=== PATIENT | male | born 1995 | race Hispanic/Latino ===

== ENCOUNTER 2018-03-06 15:28 | Emergency (ER) | payer SELFPAY ==
--- NOTE | 2018-03-06 17:17 | EDPHYS ---
Physician Documentation [facility] Name: Moisés Salas Jr Age: 22 yrs Sex: Male : 1995 Arrival Date: 03/06/2018 Time: 15:31 Bed 10 Private MD: ED Physician Titus Love HPI: 03/06 15:49 This 22 yrs old Male presents to ER via Ambulatory with complaints of Cough, kb Sore Throat. 15:49 The patient or guardian reports cough, that is intermittent, described as mild, with no kb sputum. Onset: The symptoms/episode began/occurred 1 week(s) ago. Severity of symptoms: At their worst the symptoms were mild, in the emergency department the symptoms are unchanged. Modifying factors: The symptoms are alleviated by nothing, the symptoms are aggravated by nothing. Associated signs and symptoms: Pertinent positives: sore throat, Pertinent negatives: chest pain, diarrhea, ear ache, fever, nausea, rhinorrhea, vomiting. The patient has not experienced similar symptoms in the past. The patient has not recently seen a physician. Historical: - Allergies: 15:44 No Known Allergies; mg2 - Home Meds: 15:44 None [Active]; mg2 - PMHx: 15:44 None; mg2 - PSHx: 15:44 hip surgery; mg2 - Immunization history:: Flu vaccine status is unknown. - Social history:: Smoking status: Patient uses tobacco products, smokes one-half pack cigarettes per day, Patient uses alcohol, weekly. Patient/guardian denies using street drugs, IV drugs. - Ebola Screening: : No symptoms or risks identified at this time. ROS: 15:49 Constitutional: Negative for fever, chills, and weight loss, Cardiovascular: Negative kb for chest pain, palpitations, and edema, Abdomen/GI: Negative for abdominal pain, nausea, vomiting, diarrhea, and constipation, Back: Negative for injury and pain, : Negative for injury, bleeding, discharge, and swelling, MS/Extremity: Negative for injury and deformity, Skin: Negative for injury, rash, and discoloration, Neuro: Negative for headache, weakness, numbness, tingling, and seizure. 15:49 ENT: Positive for sore throat. 15:49 Respiratory: Positive for cough, Negative for dyspnea on exertion, hemoptysis, orthopnea, pleurisy, shortness of breath, sputum production, wheezing. Exam: 15:50 Constitutional: This is a well developed, well nourished patient who is awake, alert, kb and in no acute distress. Head/Face: Normocephalic, atraumatic. ENT: Nares patent. No nasal discharge, no septal abnormalities noted. Tympanic membranes are normal and external auditory canals are clear. Oropharynx with no redness, swelling, or masses, exudates, or evidence of obstruction, uvula midline. Mucous membranes moist. Neck: Trachea midline, no thyromegaly or masses palpated, and no cervical lymphadenopathy. Supple, full range of motion without nuchal rigidity, or vertebral point tenderness. No Meningismus. Chest/axilla: Normal chest wall appearance and motion. Nontender with no deformity. No lesions are appreciated. Cardiovascular: Regular rate and rhythm with a normal S1 and S2. No gallops, murmurs, or rubs. Normal PMI, no JVD. No pulse deficits. Respiratory: Lungs have equal breath sounds bilaterally, clear to auscultation and percussion. No rales, rhonchi or wheezes noted. No increased work of breathing, no retractions or nasal flaring. Abdomen/GI: Soft, non-tender, with normal bowel sounds. No distension or tympany. No guarding or rebound. No evidence of tenderness throughout. Skin: Warm, dry with normal turgor. Normal color with no rashes, no lesions, and no evidence of cellulitis. MS/ Extremity: Pulses equal, no cyanosis. Neurovascular intact. Full, normal range of motion. Neuro: Awake and alert, GCS 15, oriented to person, place, time, and situation. Cranial nerves II-XII grossly intact. Motor strength 5/5 in all extremities. Sensory grossly intact. Cerebellar exam normal. Normal gait. Vital Signs: 15:43 BP 145 / 89; Pulse 73; Resp 18; Temp 99; Pulse Ox 100% on R/A; Weight 122.47 kg; Height mg2 6 ft. 0 in. (182.88 cm); Pain 6/10; 17:19 BP 142 / 70; Pulse 79; Resp 18; Temp 98.7(O); Pulse Ox 100% ; Pain 0/10; mg2 15:43 Body Mass Index 36.62 (122.47 kg, 182.88 cm) mg2 MDM: 15:35 Patient medically screened. kb 15:50 Data reviewed: vital signs, nurses notes. Data interpreted: Pulse oximetry: on room air kb is 100 %. Interpretation: normal. 17:16 Counseling: I had a detailed discussion with the patient and/or guardian regarding: the kb historical points, exam findings, and any diagnostic results supporting the discharge/admit diagnosis, lab results, the need for outpatient follow up, a family practitioner, to return to the emergency department if symptoms worsen or persist or if there are any questions or concerns that arise at home. 03/06 15:40 Order name: Flu; Complete Time: 17:03 kb 03/06 15:40 Order name: Strep; Complete Time: 16:50 kb 03/06 16:51 Order name: Throat Culture EDMS Administered Medications: No medications were administered Disposition: 03/07 06:34 Co-signature as Attending Physician, Titus Love MD I agree with the assessment and shai plan of care. Disposition: 03/06/18 17:16 Discharged to Home. Impression: Acute pharyngitis. - Condition is Stable. - Discharge Instructions: Pharyngitis, [id number], Viral Respiratory Infection, [id number]. - Work release form, Family Work Release, Medication Reconciliation Form, Thank You Letter, Antibiotic Education, Prescription Opioid Use form. - Follow up: Emergency Department; When: As needed; Reason: Worsening of condition. Follow up: Private Physician; When: 2 - 3 days; Reason: Recheck today's complaints, Continuance of care, Re-evaluation by your physician. Signatures: Dispatcher [employer] EDTN Rosio Cardoza, INTERNET TECHNOLOGY MANAGER-C INTERNET TECHNOLOGY MANAGER-Titus Nielson MD MD cha Gardose, Michele, RN RN mg2 Corrections: (The following items were deleted from the chart) 03/06 17:31 17:16 03/06/2018 17:16 Discharged to Home. Impression: Acute pharyngitis. Condition is mg2 Stable. Forms are Medication Reconciliation Form, Thank You Letter, Antibiotic Education, Prescription Opioid Use. Follow up: Emergency Department; When: As needed; Reason: Worsening of condition. Follow up: Private Physician; When: 2 - 3 days; Reason: Recheck today's complaints, Continuance of care, Re-evaluation by your physician. kb
--- NOTE | 2018-03-06 17:17 | ER ---
Nurse's Notes [facility] Name: Moisés Salas Jr Age: 22 yrs Sex: Male : 1995 Arrival Date: 03/06/2018 Time: 15:31 Bed 10 Private MD: Diagnosis: Acute pharyngitis Presentation: 03/06 15:42 Presenting complaint: Patient states: he has cough and sore throat for a week and chest mg2 pain because of coughing. Transition of care: patient was not received from another setting of care. Onset of symptoms was February 2018. Risk Assessment: Do you want to hurt yourself or someone else? Patient reports no desire to harm self or others. Initial Sepsis Screen: Does the patient meet any 2 criteria? No. Patient's initial sepsis screen is negative. Does the patient have a suspected source of infection? No. Patient's initial sepsis screen is negative. Care prior to arrival: None. 15:42 Method Of Arrival: Ambulatory mg2 15:42 Acuity: MARIA ISABEL 4 mg2 Historical: - Allergies: 15:44 No Known Allergies; mg2 - Home Meds: 15:44 None [Active]; mg2 - PMHx: 15:44 None; mg2 - PSHx: 15:44 hip surgery; mg2 - Immunization history:: Flu vaccine status is unknown. - Social history:: Smoking status: Patient uses tobacco products, smokes one-half pack cigarettes per day, Patient uses alcohol, weekly. Patient/guardian denies using street drugs, IV drugs. - Ebola Screening: : No symptoms or risks identified at this time. Screenin:56 Abuse screen: Denies threats or abuse. Denies injuries from another. Nutritional mg2 screening: No deficits noted. Tuberculosis screening: No symptoms or risk factors identified. Fall Risk None identified. Assessment: 15:55 General: Appears in no apparent distress. comfortable, Behavior is calm, cooperative. mg2 Pain: Complains of pain in throat Pain does not radiate. Neuro: Level of Consciousness is awake, alert, obeys commands, Oriented to person, place, time, situation. Cardiovascular: Capillary refill < 3 seconds Patient's skin is warm and dry. Respiratory: Airway is patent Respiratory effort is even, unlabored, Breath sounds are clear. GI: No signs and/or symptoms were reported involving the gastrointestinal system. : No signs and/or symptoms were reported regarding the genitourinary system. EENT: Throat is reddened. Derm: Skin is intact, is healthy with good turgor, Skin is pink, warm \T\ dry. normal. Musculoskeletal: No signs and/or symptoms reported regarding the musculoskeletal system. 17:31 Reassessment: Patient appears in no apparent distress at this time. Patient and/or mg2 family updated on plan of care and expected duration. Pain level reassessed. Patient is alert, oriented x 3, equal unlabored respirations, skin warm/dry/pink. Vital Signs: 15:43 BP 145 / 89; Pulse 73; Resp 18; Temp 99; Pulse Ox 100% on R/A; Weight 122.47 kg; Height mg2 6 ft. 0 in. (182.88 cm); Pain 6/10; 17:19 BP 142 / 70; Pulse 79; Resp 18; Temp 98.7(O); Pulse Ox 100% ; Pain 0/10; mg2 15:43 Body Mass Index 36.62 (122.47 kg, 182.88 cm) mg2 ED Course: 15:31 Patient arrived in ED. mr 15:32 Rosio Cardoza FNP-C is [facility]. kb 15:32 Titus Love MD is Attending Physician. kb 15:42 Bo Sepulveda, HENRY is Primary Nurse. mg2 15:43 Triage completed. mg2 15:44 Arm band placed on. mg2 15:56 Patient has correct armband on for positive identification. mg2 15:56 No provider procedures requiring assistance completed. Patient did not have IV access mg2 during this emergency room visit. Administered Medications: No medications were administered Outcome: 17:16 Discharge ordered by . kb 17:31 Discharged to home ambulatory, with family. mg2 17:31 Condition: stable 17:31 Discharge instructions given to patient, family, Instructed on discharge instructions, follow up and referral plans. Demonstrated understanding of instructions, follow-up care. 17:31 Patient left the ED. mg2 Signatures: Rosio Cardoza FNP-C FNP-Cady Ld Roseann Bo Sepulveda, RN RN mg2 Corrections: (The following items were deleted from the chart) 17:31 17:19 Pulse 79bpm; Resp 18bpm; Pulse Ox 100%; Temp 98.7F Oral; Pain 0/10; mg2 mg2
== END 2018-03-06 17:31 | disposition home or self-care (01) ==
LOC: ER 15:28
DX: J02.9 Acute pharyngitis, unspecified (principal); F17.210 Nicotine dependence, cigarettes, uncomplicated
CPT/HCPCS: 87070; 87081; 87804; 99281

== ENCOUNTER 2018-04-12 18:59 | Emergency (ER) | payer SELFPAY ==
--- NOTE | 2018-04-12 20:02 | EDPHYS ---
Physician Documentation [facility] Name: Moisés Salas Jr Age: 23 yrs Sex: Male : 1995 Arrival Date: 04/12/2018 Time: 19:02 Bed 28 Private MD: ED Physician Nash Mckee HPI: 04/12 19:45 This 23 yrs old Male presents to ER via Ambulatory with complaints of Cough, cp Ear Pain. 19:45 The patient or guardian reports cough, that is intermittent, with productive sputum. cp Onset: The symptoms/episode began/occurred 3 day(s) ago. 19:45 Severity of symptoms: in the emergency department the symptoms are unchanged, despite cp home interventions. Associated signs and symptoms: Pertinent positives: earache, sore throat, cough, Pertinent negatives: chest pain, diarrhea, vomiting. Historical: - Allergies: 19:08 No Known Allergies; aa5 - PMHx: 19:08 None; aa5 - PSHx: 19:08 hip surgery; aa5 - Immunization history:: Flu vaccine is up to date. - Social history:: Smoking status: Patient uses tobacco products, denies chronic smoking, but will smoke occasionally. - Ebola Screening: : No symptoms or risks identified at this time. ROS: 20:00 Constitutional: Negative for body aches, chills, fever, poor PO intake. cp 20:00 Eyes: Negative for injury, pain, redness, and discharge. cp 20:00 ENT: Positive for ear pain, sinus congestion, sore throat, Negative for drainage from cp ear(s), difficulty swallowing, difficulty handling secretions. 20:00 Neck: Negative for pain with movement, pain at rest, stiffness. 20:00 Cardiovascular: Negative for chest pain, edema, palpitations. 20:00 Respiratory: Positive for cough, Negative for shortness of breath, wheezing. 20:00 Abdomen/GI: Negative for abdominal pain, nausea, vomiting, and diarrhea. 20:00 Skin: Negative for cellulitis, rash. 20:00 Neuro: Negative for dizziness, headache, weakness. cp 20:00 All other systems are negative. Exam: 20:00 Constitutional: The patient appears in no acute distress, alert, awake, non-toxic, well cp developed, well nourished. 20:00 Head/Face: Normocephalic, atraumatic. cp 20:00 Eyes: Periorbital structures: appear normal, Conjunctiva: normal, no exudate, no injection, Sclera: no appreciated abnormality, Lids and lashes: appear normal, bilaterally. 20:00 ENT: External ear(s): are unremarkable, Ear canal(s): erythema, that is moderate, of the right canal, TM's: bulging, on the right, erythema, that is moderate, on the right, Nose: is normal, Mouth: Lips: moist, Oral mucosa: moist, Posterior pharynx: Airway: no evidence of obstruction, patent, Tonsils: with erythema, no exudate, swelling, is not appreciated, erythema, that is moderate, exudate, is not appreciated. 20:00 Neck: ROM/movement: is normal, is supple, without pain, no range of motions limitations, no meningismus, no nuchal rigidity. 20:00 Chest/axilla: Inspection: normal, Palpation: is normal, no crepitus, no tenderness. 20:00 Cardiovascular: Rate: normal, Rhythm: regular. cp 20:00 Respiratory: the patient does not display signs of respiratory distress, Respirations: normal, no use of accessory muscles, no retractions, no splinting, no tachypnea, labored breathing, is not present, Breath sounds: decreased breath sounds, are not appreciated, stridor, is not appreciated, + upper airway congestion. 20:00 Abdomen/GI: Inspection: abdomen appears normal, Palpation: abdomen is soft and non-tender, in all quadrants. 20:00 Back: pain, is absent, ROM is normal. 20:00 Skin: cellulitis, is not appreciated, no rash present. 20:00 Neuro: Orientation: to person, place \T\ time. Mentation: is normal, Cerebellar function: is grossly normal, Motor: moves all fours, strength is normal, Sensation: is normal. Vital Signs: 19:08 BP 154 / 91; Pulse 93; Resp 18 S; Temp 99.1(O); Pulse Ox 95% on R/A; Weight 122.47 kg aa5 (R); Pain 8/10; MDM: 19:13 Patient medically screened. cp 20:01 Data reviewed: vital signs, nurses notes, lab test result(s). cp 04/12 19:10 Order name: Flu; Complete Time: 19:51 aa5 04/12 19:51 Interpretation: Reviewed. cp 04/12 19:10 Order name: Strep; Complete Time: 19:51 aa5 04/12 19:51 Interpretation: Reviewed. 04/12 19:35 Order name: Throat Culture [facility] Administered Medications: 19:59 Drug: Tussionex Pennkinetic ER 5 ml Route: PO; mg2 20:15 Follow up: Response: No adverse reaction; Marked relief of symptoms mg2 Disposition: 04/12/18 20:01 Discharged to Home. Impression: Otitis media, unspecified, right ear, Acute upper respiratory infection, unspecified. - Condition is Stable. - Discharge Instructions: Otitis Media, Adult, Upper Respiratory Infection, Adult. - Prescriptions for Augmentin 875- 125 mg Oral Tablet - take 1 tablet by ORAL route every 12 hours for 10 days; 20 tablet. Tessalon Perles 100 mg Oral Capsule - take 2 capsule by ORAL route every 8 hours As needed; 30 capsule. Albuterol Sulfate 90 mcg/actuation - inhale 1-2 puff by INHALATION route every 4-6 hours; 1 Inhaler. - Medication Reconciliation Form, Thank You Letter, Antibiotic Education, Prescription Opioid Use, Work release form form. - Follow up: Private Physician; When: 2 - 3 days; Reason: Recheck today's complaints. - Problem is new. - Symptoms have improved. Addendum: 04/15/2018 07:05 Co-signature as Attending Physician, Nash Mckee MD. r n Signatures: Dispatcher [employer] EDAR Nash Mckee MD MD rn Calderon, Audri, RN RN aa5 Titus Delacruz PA PA cp Gardose, Michele, RN RN mg2 Corrections: (The following items were deleted from the chart) 04/12 20:17 20:01 04/12/2018 20:01 Discharged to Home. Impression: Otitis media, unspecified, right mg2 ear; Acute upper respiratory infection, unspecified. Condition is Stable. Forms are Medication Reconciliation Form, Thank You Letter, Antibiotic Education, Prescription Opioid Use. Follow up: Private Physician; When: 2 - 3 days; Reason: Recheck today's complaints. Problem is new. Symptoms have improved. cp
--- NOTE | 2018-04-12 20:02 | ER ---
Nurse's Notes [facility] Name: Moisés Salas Jr Age: 23 yrs Sex: Male : 1995 Arrival Date: 04/12/2018 Time: 19:02 Bed 28 Private MD: Diagnosis: Otitis media, unspecified, right ear;Acute upper respiratory infection, unspecified Presentation: 04/12 19:07 Presenting complaint: Patient states: productive cough that began x 2-3 days ago. Pt aa5 also reports right ear pain and sore throat. Transition of care: patient was not received from another setting of care. Onset of symptoms was March 2018. Risk Assessment: Do you want to hurt yourself or someone else? Patient reports no desire to harm self or others. Initial Sepsis Screen: Does the patient meet any 2 criteria? No. Patient's initial sepsis screen is negative. Does the patient have a suspected source of infection? No. Patient's initial sepsis screen is negative. Care prior to arrival: None. 19:07 Method Of Arrival: Ambulatory aa5 19:07 Acuity: MARIA ISABEL 4 aa5 Historical: - Allergies: 19:08 No Known Allergies; aa5 - PMHx: 19:08 None; aa5 - PSHx: 19:08 hip surgery; aa5 - Immunization history:: Flu vaccine is up to date. - Social history:: Smoking status: Patient uses tobacco products, denies chronic smoking, but will smoke occasionally. - Ebola Screening: : No symptoms or risks identified at this time. Screenin:18 Abuse screen: Denies threats or abuse. Denies injuries from another. Nutritional mg2 screening: No deficits noted. Tuberculosis screening: No symptoms or risk factors identified. Fall Risk None identified. Assessment: 19:20 General: Appears in no apparent distress. comfortable, Behavior is calm, cooperative. mg2 Pain: Complains of pain in throat Pain does not radiate. Quality of pain is described as aching, Pain began gradually, 2-3 days ago. Is intermittent. Neuro: Level of Consciousness is awake, alert, obeys commands, Oriented to person, place, time. Cardiovascular: Capillary refill < 3 seconds Patient's skin is warm and dry. Respiratory: Reports cough that is dry, Airway is patent Respiratory effort is even, unlabored, Respiratory pattern is regular, symmetrical. GI: No signs and/or symptoms were reported involving the gastrointestinal system. : No signs and/or symptoms were reported regarding the genitourinary system. EENT: Throat is reddened. Derm: Skin is intact, is healthy with good turgor, Skin is pink, warm \T\ dry. normal. Musculoskeletal: Circulation, motion, and sensation intact. Capillary refill < 3 seconds. Vital Signs: 19:08 BP 154 / 91; Pulse 93; Resp 18 S; Temp 99.1(O); Pulse Ox 95% on R/A; Weight 122.47 kg aa5 (R); Pain 8/10; ED Course: 19:02 Patient arrived in ED. rg4 19:08 Triage completed. aa5 19:08 Arm band placed on. aa5 19:13 Titus Delacruz PA is PHCP. cp 19:13 Nash Mckee MD is Attending Physician. cp 19:14 Bo Sepulveda, RN is Primary Nurse. mg2 19:18 No provider procedures requiring assistance completed. Patient did not have IV access mg2 during this emergency room visit. 19:21 Patient has correct armband on for positive identification. Pulse ox on. NIBP on. Door mg2 closed. Administered Medications: 19:59 Drug: Tussionex Pennkinetic ER 5 ml Route: PO; mg2 20:15 Follow up: Response: No adverse reaction; Marked relief of symptoms mg2 Outcome: 20:01 Discharge ordered by . cp 20:17 Discharged to home ambulatory, with family. mg2 20:17 Condition: stable 20:17 Discharge instructions given to patient, Instructed on discharge instructions, follow up and referral plans. medication usage, Demonstrated understanding of instructions, follow-up care, medications, Prescriptions given X 3. 20:17 Patient left the ED. mg2 Signatures: Susan Baker, RN RN aa5 Titus Delacruz PA PA cp Garcia, Rubi rg4 Bo Sepulveda RN RN mg2
[2018-04-12] MEDS ORDERED: HYDROCODONE/CHLORPHEN 5 ML/OSYR ONE (20:07)
== END 2018-04-12 20:17 | disposition home or self-care (01) ==
LOC: ER 18:59
DX: H66.91 Otitis media, unspecified, right ear (principal); J06.9 Acute upper respiratory infection, unspecified; Z72.0 Tobacco use
CPT/HCPCS: 87070; 87081; 87804; 99283

== ENCOUNTER 2020-03-30 02:28 | Emergency (ER) | payer SELFPAY ==
[2020-03-30] MEDS ORDERED: LIDOCAINE 1% MPF 30 ML VIAL ONE (04:11)
--- NOTE | 2020-03-30 05:32 | ER ---
Nurse's Notes [facility] Name: Moisés Salas Jr Age: 25 yrs Sex: Male : 1995 Arrival Date: 03/30/2020 Time: 02:29 Bed 3 Private MD: Diagnosis: Right Lower Leg Abscess with Cellulitis Presentation: 03/30 02:48 Chief complaint: Patient states: Reports something "I felt something bite me but I lp1 didn't think anything of it"; Occurred 2 days ago, increasing pain, swelling and redness to site, right lateral ankle, abscess noted in triage. Coronavirus screen: Client denies travel out of the [place] in the last 14 days. At this time, the client does not indicate any symptoms associated with coronavirus-19. Ebola Screen: No symptoms or risks identified at this time. Risk Assessment: Do you want to hurt yourself or someone else? Patient reports no desire to harm self or others. Onset of symptoms was March 30, 2020. 02:48 Method Of Arrival: Ambulatory lp1 02:48 Acuity: MARIA ISABEL 4 lp1 02:50 Initial Sepsis Screen: Does the patient meet any 2 criteria? No. Patient's initial lp1 sepsis screen is negative. Does the patient have a suspected source of infection? No. Patient's initial sepsis screen is negative. Historical: - Allergies: 02:49 No Known Allergies; lp1 - Home Meds: 02:49 None [Active]; lp1 - PMHx: 02:49 None; lp1 - PSHx: 02:49 None; lp1 - Immunization history:: Adult Immunizations up to date. - Social history:: Smoking status: Patient reports the use of cigarette tobacco products, smokes one-half pack cigarettes per day. Screenin:52 Abuse screen: Denies threats or abuse. Denies injuries from another. Nutritional lp1 screening: No deficits noted. Tuberculosis screening: No symptoms or risk factors identified. Fall Risk None identified. Assessment: 03:46 General: Appears in no apparent distress. Behavior is appropriate for age. Pain: ea Complains of pain in lateral aspect of right calf. Neuro: Level of Consciousness is awake, alert, obeys commands, Oriented to person, place, time. Respiratory: Airway is patent Respiratory effort is even, unlabored, Respiratory pattern is regular, symmetrical. Derm: redness and swelling to lateral aspect of right calf. Musculoskeletal: Circulation, motion, and sensation intact. 05:35 Reassessment: Patient and/or family updated on plan of care and expected duration. Pain ea level reassessed. Patient is alert, oriented x 3, equal unlabored respirations, skin warm/dry/pink. Discharge instruction given to patient, verbalized the understanding of instruction. Pt left ED ambulatory tolerating well. Vital Signs: 02:50 BP 148 / 92; Pulse 87; Resp 16; Temp 97.4; Pulse Ox 98% on R/A; Weight 117.93 kg (R); lp1 Height 5 ft. 10 in. (177.80 cm); Pain 6/10; 02:50 Body Mass Index 37.31 (117.93 kg, 177.80 cm) lp1 ED Course: 02:29 Patient arrived in ED. am2 02:49 Triage completed. lp1 02:50 Arm band placed on. lp1 02:52 Patient has correct armband on for positive identification. 1 03:44 Bebo Pitts MD is Attending Physician. [facility] 03:46 Cristina Meneses RN is Primary Nurse. ea 05:29 Assist provider with I \\T\\ D: of an abscess on right Set up I\\T\\D tray. Performed by linda Pitts MD Wound packed. Dressing with Patient tolerated well. Patient did not have IV access during this emergency room visit. Administered Medications: 05:12 Drug: Lidocaine (1 %) 1 amp Volume: 20 ml; Route: Infiltration; ea 05:33 Drug: KeFLEX 500 mg Route: PO; ea 05:35 Follow up: Response: No adverse reaction ea 05:33 Drug: Bactrim (160 mg-800 mg (DS) 1 tablet Route: PO; ea 05:33 Follow up: Response: No adverse reaction ea Outcome: 05:31 Discharge ordered by . [facility] 05:35 Discharged to home ambulatory. ea 05:35 Condition: stable 05:35 Discharge instructions given to patient, Instructed on discharge instructions, follow up and referral plans. medication usage, Demonstrated understanding of instructions, follow-up care, medications, Prescriptions given X 3. 05:37 Patient left the ED. ea Signatures: Eve Villarreal RN RN 1 Rosa Cordova am2 Cristina Meneses RN RN Bebo Giles, MD [id number]
--- NOTE | 2020-03-30 05:32 | EDPHYS ---
Physician Documentation [facility] Name: Moisés Salas Jr Age: 25 yrs Sex: Male : 1995 Arrival Date: 03/30/2020 Time: 02:29 Bed 3 Private MD: ED Physician Bebo Pitts HPI: 03/30 05:22 This 25 yrs old Male presents to ER via Ambulatory with complaints of Insect mh7 Bite, Leg Swelling - right. 05:22 the patient presents with a swollen area of the right leg. Description: The affected mh7 area is small, localized, erythematous, swollen, tense. Onset: The symptoms/episode began/occurred 2 day(s) ago. Possible cause(s): insect sting. Associated signs and symptoms: Pertinent positives: erythema, swelling, Pertinent negatives: discharge, drainage, foreign body sensation, fever, headache, nausea, shortness of breath, vomiting. Modifying factors: the symptoms are alleviated by nothing, the symptoms are aggravated by pressure, touching. Severity of symptoms: At their worst the symptoms were moderate, yesterday, in the emergency department the symptoms are unchanged. Historical: - Allergies: 02:49 No Known Allergies; lp1 - Home Meds: 02:49 None [Active]; lp1 - PMHx: 02:49 None; lp1 - PSHx: 02:49 None; lp1 - Immunization history:: Adult Immunizations up to date. - Social history:: Smoking status: Patient reports the use of cigarette tobacco products, smokes one-half pack cigarettes per day. ROS: 05:22 Constitutional: Negative for fever, chills, and weight loss, Eyes: Negative for injury, mh7 pain, redness, and discharge, ENT: Negative for injury, pain, and discharge, Neck: Negative for injury, pain, and swelling, Cardiovascular: Negative for chest pain, palpitations, and edema, Respiratory: Negative for shortness of breath, cough, wheezing, and pleuritic chest pain, Abdomen/GI: Negative for abdominal pain, nausea, vomiting, diarrhea, and constipation, Back: Negative for injury and pain, : Negative for injury, bleeding, discharge, and swelling, Neuro: Negative for headache, weakness, numbness, tingling, and seizure, Psych: Negative for depression, anxiety, suicide ideation, homicidal ideation, and hallucinations, Allergy/Immunology: Negative for hives, rash, and allergies, Endocrine: Negative for neck swelling, polydipsia, polyuria, polyphagia, and marked weight changes, Hematologic/Lymphatic: Negative for swollen nodes, abnormal bleeding, and unusual bruising. Exam: 05:22 Constitutional: This is a well developed, well nourished patient who is awake, alert, mh7 and in no acute distress. Head/Face: Normocephalic, atraumatic. Eyes: Pupils equal round and reactive to light, extra-ocular motions intact. Lids and lashes normal. Conjunctiva and sclera are non-icteric and not injected. Cornea within normal limits. Periorbital areas with no swelling, redness, or edema. Neck: Trachea midline, no thyromegaly or masses palpated, and no cervical lymphadenopathy. Supple, full range of motion without nuchal rigidity, or vertebral point tenderness. No Meningismus. Chest/axilla: Normal chest wall appearance and motion. Nontender with no deformity. No lesions are appreciated. Cardiovascular: Regular rate and rhythm with a normal S1 and S2. No gallops, murmurs, or rubs. Normal PMI, no JVD. No pulse deficits. Respiratory: Lungs have equal breath sounds bilaterally, clear to auscultation and percussion. No rales, rhonchi or wheezes noted. No increased work of breathing, no retractions or nasal flaring. Abdomen/GI: Soft, non-tender, with normal bowel sounds. No distension or tympany. No guarding or rebound. No evidence of tenderness throughout. Back: No spinal tenderness. No costovertebral tenderness. Full range of motion. 05:22 Neuro: Awake and alert, GCS 15, oriented to person, place, time, and situation. Cranial nerves II-XII grossly intact. Motor strength 5/5 in all extremities. Sensory grossly intact. Cerebellar exam normal. Normal gait. Psych: Awake, alert, with orientation to person, place and time. Behavior, mood, and affect are within normal limits. 05:22 Musculoskeletal/extremity: Extremities: noted in the right lateral lower leg: erythema, swelling, tenderness, ROM: intact in all extremities, Circulation is intact in all extremities. Pulses: are normal with no appreciated deficits, Perfusion: the patient is normally perfused throughout, Perfusion: the extremity is normally perfused throughout, Calf tenderness, is absent, Edema, is not appreciated, Sensation intact. Compartment Syndrome exam of affected extremity: is normal. no numbness, no tingling, no sensation deficit, no palor, no weak pulses, Joints: All joints appear normal with full range of motion. Weight bearing: able to fully bear weight, without difficulty, Tendon exam: specific tendon testing normal through active and passive range of motion Calves: are non-tender, have equal circumference. 05:22 Skin: cellulitis, that is mild, patchy, on the lateral right lower leg, induration, that is mild is noted, located on the right lateral lower leg. Vital Signs: 02:50 BP 148 / 92; Pulse 87; Resp 16; Temp 97.4; Pulse Ox 98% on R/A; Weight 117.93 kg (R); lp1 Height 5 ft. 10 in. (177.80 cm); Pain 6/10; 02:50 Body Mass Index 37.31 (117.93 kg, 177.80 cm) lp1 Procedures: 05:22 I \T\ D: Incision and drainage was performed for an abscess of the right lateral right mh7 lower leg Prepped with Betadine, Anesthetized with 5 ml's 1% Lidocaine. Incised with #11 blade. Drained small amount serosanguinous fluid. Loculations removed. Packed with iodoform gauze, Dressing: sterile 4x4 gauze, the patient tolerated the procedure well. MDM: 05:22 Differential diagnosis: abscess, cellulitis, insect bite. Data reviewed: vital signs, [facility] nurses notes. Data interpreted: Pulse oximetry: on room air is 98 %. Interpretation: normal. Counseling: I had a detailed discussion with the patient and/or guardian regarding: the historical points, exam findings, and any diagnostic results supporting the discharge/admit diagnosis, the presence of at least one elevated blood pressure reading (>120/80) during this emergency department visit, the need for outpatient follow up, to return to the emergency department if symptoms worsen or persist or if there are any questions or concerns that arise at home. Response to treatment: the patient's symptoms have markedly improved after treatment. 05:31 Patient medically screened. [facility] 03/30 03:58 Order name: I\T\D Setup; Complete Time: 03:58 ea 03/30 05:21 Order name: Dressing - Wound; Complete Time: 05:33 ea Administered Medications: 05:12 Drug: Lidocaine (1 %) 1 amp Volume: 20 ml; Route: Infiltration; ea 05:33 Drug: KeFLEX 500 mg Route: PO; ea 05:35 Follow up: Response: No adverse reaction ea 05:33 Drug: Bactrim (160 mg-800 mg (DS) 1 tablet Route: PO; ea 05:33 Follow up: Response: No adverse reaction ea Disposition: 03/30/20 05:31 Discharged to Home. Impression: Right Lower Leg Abscess with Cellulitis. - Condition is Stable. - Discharge Instructions: Skin Abscess, [id number], Cellulitis, Adult, [id number]. - Prescriptions for Ibuprofen 800 mg Oral Tablet - take 1 tablet by ORAL route every 8 hours As needed take with food; 15 tablet. Keflex 500 mg Oral Capsule - take 1 capsule by ORAL route every 6 hours for 10 days; 40 capsule. Bactrim DS 800- 160 mg Oral Tablet - take 1 tablet by ORAL route every 12 hours for 10 days; 20 tablet. - Medication Reconciliation Form, Thank You Letter, Antibiotic Education, Prescription Opioid Use form. - Follow up: Private Physician; When: 48 Hours; Reason: Wound Recheck, Worsening of condition, Recheck today's complaints, Continuance of care, Re-evaluation by your physician. Follow up: Emergency Department; When: 48 Hours; Reason: Wound Recheck, Worsening of condition, Recheck today's complaints. - Problem is new. - Symptoms have improved. Signatures: Eve Villarreal RN RN lp1 Cristina Meneses RN RN ea Holmes, Maurice, MD MD mh7 Corrections: (The following items were deleted from the chart) 05:37 05:31 03/30/2020 05:31 Discharged to Home. Impression: Right Lower Leg Abscess with ea Cellulitis. Condition is Stable. Forms are Medication Reconciliation Form, Thank You Letter, Antibiotic Education, Prescription Opioid Use. Follow up: Private Physician; When: 48 Hours; Reason: Wound Recheck, Worsening of condition, Recheck today's complaints, Continuance of care, Re-evaluation by your physician. Follow up: Emergency Department; When: 48 Hours; Reason: Wound Recheck, Worsening of condition, Recheck today's complaints. Problem is new. Symptoms have improved. mh7
[2020-03-30] MEDS ORDERED: SMZ./TMP. 800/160 MG TABLET ONE (05:40)
[2020-03-30 05:41] VITALS: BP 148/92; TEMP 97.4; O2SAT 98
[2020-03-30] MEDS ORDERED: CEPHALEXIN 250 MG CAP ONE (05:41)
== END 2020-03-30 05:37 | disposition home or self-care (01) ==
LOC: ER 02:28
PROC: 0J9N0ZZ Drainage of Right Lower Leg Subcutaneous Tissue and Fascia, Open Approach (ICD-10-PCS; principal; 2020-03-30)
DX: L03.115 Cellulitis of right lower limb (principal); F17.210 Nicotine dependence, cigarettes, uncomplicated
CPT/HCPCS: 99283

== ENCOUNTER 2021-08-06 10:07 | Emergency (ER) | payer SELFPAY ==
[2021-08-06 11:23] LABS: Absolute Lymphocytes (CBC) 2.2 K/uL (0.7-4.9); Hematocrit 43.4 % (39.6-49.0); Lymphocytes % 27.9 % (15.3-44.8); MPV 8.8 fL (7.6-11.3)
[2021-08-06] MEDS ORDERED: FAMOTIDINE 20 MG/2 ML VIAL IV ONE (11:23)
[2021-08-06] MEDS ORDERED: ONDANSETRON 4 MG/2 ML VIAL ONE (11:23)
[2021-08-06] MEDS ORDERED: NA CHLORIDE 0.9% 1,000 ML ONE (11:23)
[2021-08-06 11:42] LABS: Albumin 3.8 g/dL (3.4-5.0); Bilirubin Total 0.4 mg/dL (0.2-1.0); Potassium 3.9 mmol/L (3.5-5.1); Protein, Total 7.5 g/dL (6.4-8.2)
[2021-08-06] MEDS ORDERED: INSULIN -REGULAR HUMAN 50 UNIT/0.5 ML ML ONE (12:29)
--- NOTE | 2021-08-06 12:36 | EDPHYS ---
Physician Documentation [facility] Name: Moisés Salas Jr Age: 26 yrs Sex: Male : 1995 Arrival Date: 08/06/2021 Time: 10:09 Bed 12 Private MD: ED Physician Titus Love HPI: 08/06 10:15 This 26 yrs old Male presents to ER via Ambulatory with complaints of jh7 Abdominal Pain. 10:15 The patient presents with abdominal pain that is diffuse. Onset: The symptoms/episode jh7 began/occurred 2 week(s) ago. The symptoms do not radiate. Associated signs and symptoms: Pertinent positives: diarrhea, nausea, Pertinent negatives: chest pain, constipation, dysuria, palpitations, shortness of breath, vomiting, vomiting blood. Patient presents for generalized abdominal pain, nausea, and diarrhea for 2 weeks. He denies fever or any other symptoms at this time. States that he does take metformin, has been out for a month, and has no idea what his dose is.. Historical: - Allergies: 10:59 No Known Allergies; iw - Home Meds: 10:59 Metformin Oral [Active]; iw - PMHx: 10:59 Diabetes mellitus; iw ROS: 10:15 Constitutional: Negative for fever, chills, and weight loss, Neck: Negative for injury, jh7 pain, and swelling, Cardiovascular: Negative for chest pain, palpitations, and edema, Respiratory: Negative for shortness of breath, cough, wheezing, and pleuritic chest pain, Back: Negative for injury and pain, : Negative for injury, bleeding, discharge, and swelling, Skin: Negative for injury, rash, and discoloration, Neuro: Negative for headache, weakness, numbness, tingling, and seizure. 10:15 Abdomen/GI: Positive for abdominal pain, nausea, diarrhea, abdominal cramps, Negative for vomiting, constipation, dysphagia, hematemesis, black/tarry stool. 10:15 All other systems are negative. Exam: 10:15 Constitutional: This is a well developed, well nourished patient who is awake, alert, jh7 and in no acute distress. 10:15 Cardiovascular: Regular rate and rhythm with a normal S1 and S2. No gallops, murmurs, or rubs. Normal PMI, no JVD. No pulse deficits. Respiratory: Lungs have equal breath sounds bilaterally, clear to auscultation and percussion. No rales, rhonchi or wheezes noted. No increased work of breathing, no retractions or nasal flaring. Abdomen/GI: Soft, non-tender, with normal bowel sounds. No distension or tympany. No guarding or rebound. No evidence of tenderness throughout. Back: No spinal tenderness. No costovertebral tenderness. Full range of motion. Skin: Warm, dry with normal turgor. Normal color with no rashes, no lesions, and no evidence of cellulitis. Neuro: Awake and alert, GCS 15, oriented to person, place, time, and situation. Normal gait. 10:15 Constitutional: The patient appears in no acute distress, alert, awake, uncomfortable. Vital Signs: 11:00 BP 151 / 76; Pulse 67; Resp 16; Temp 97.5; Pulse Ox 97% on R/A; iw MDM: 11:01 Patient medically screened. shai 12:45 Differential diagnosis: gastritis, Gastroenteritis. Data reviewed: vital signs, nurses [facility] notes, lab test result(s). Data interpreted: Pulse oximetry: is 97 %. Interpretation: normal. Counseling: I had a detailed discussion with the patient and/or guardian regarding: the historical points, exam findings, and any diagnostic results supporting the discharge/admit diagnosis, to return to the emergency department if symptoms worsen or persist or if there are any questions or concerns that arise at home. Response to treatment: the patient's symptoms have markedly improved after treatment. ED course: The patient remained hemodynamically stable throughout the ER visit. There were no signs of acute abdomen/peritonitis. The patient symptoms resolved after medication therapy. He was given insulin IV for hyperglycemia. Advised him to follow-up with his PCP to get his metformin refilled. He states that he is able to get a refill. If his symptoms return, worsen, or he develops any new concerning symptoms, he is advised to return to the ER for further eval. The patient understood the plan of care.. 08/06 11:02 Order name: CBC with Diff; Complete Time: 12:00 [facility] 08/06 11:02 Order name: CMP; Complete Time: 12:00 [facility] 08/06 11:02 Order name: Lipase; Complete Time: 12:00 [facility] 08/06 11:02 Order name: IV Saline Lock; Complete Time: [facility] 08/06 11:02 Order name: Labs collected and sent; Complete Time: [facility] Administered Medications: Drug: NS 0.9% 1000 ml Route: IV; Rate: 1 bolus; Site: right antecubital; iw 12:30 Follow up: IV Status: Completed infusion iw 11: Drug: Pepcid (famotidine) 20 mg Route: IVP; Site: right antecubital; iw 11:34 Follow up: Response: No adverse reaction iw 11:22 Drug: Zofran (Ondansetron) 4 mg Route: IVP; Site: right antecubital; iw 12:00 Follow up: Response: No adverse reaction iw 12:30 Drug: Insulin Regular Human 5 units {Co-Signature: iw (Lisbet Andrea RN).} Route: IVP; ld1 Site: right antecubital; 12:50 Follow up: Response: No adverse reaction Disposition Summary: 08/06/21 12:35 Discharge Ordered Location: Home [facility] Problem: new [facility] Symptoms: are resolved [facility] Condition: Stable [facility] Diagnosis - Noninfective gastroenteritis and colitis, unspecified [facility] Followup: [facility] - With: Private Physician - When: 2 - 3 days - Reason: Recheck today's complaints Discharge Instructions: - Discharge Summary Sheet [facility] - Food Choices to Help Relieve Diarrhea, Adult 7 - Diarrhea, Adult jh7 - Hyperglycemia [facility] - Viral Gastroenteritis, Adult [facility] Forms: - Medication Reconciliation Form [facility] - Thank You Letter [facility] - Work release form Prescriptions: - Zofran 4 mg Oral Tablet - take 1 tablet by ORAL route every 12 hours As needed; 20 tablet; Refills: 0, [facility] Product Selection Permitted - Levsin 0.125 mg Oral Tablet - take 1 tablet by ORAL route every 8 hours; 30 tablet; Refills: 0, Product [facility] Selection Permitted Signatures: Dispatcher [employer] Titus Stephen MD MD cha Williams, Irene RN HENRY iw Megan Scruggs RN RN ld1 Niya Bender, SEED ANALYST SEED ANALYST [facility] Lisbet Andrea RN iw
--- NOTE | 2021-08-06 12:36 | ER ---
Nurse's Notes [facility] Name: Moisés Salas Jr Age: 26 yrs Sex: Male : 1995 Arrival Date: 08/06/2021 Time: 10:09 Bed 12 Private MD: Diagnosis: Noninfective gastroenteritis and colitis, unspecified Presentation: 08/06 10:59 Chief complaint: Patient states: has had a bad stomach ache and today he went to the iw bathroom and he had chills, started 2 weeks ago. Coronavirus screen: Client presents with at least one sign or symptom that may indicate coronavirus-19. Ebola Screen: Patient negative for fever greater than or equal to 101.5 degrees Fahrenheit, and additional compatible Ebola Virus Disease symptoms Patient denies exposure to infectious person. Patient denies travel to an Ebola-affected area in the 21 days before illness onset. No symptoms or risks identified at this time. Initial Sepsis Screen: Does the patient meet any 2 criteria? No. Patient's initial sepsis screen is negative. Does the patient have a suspected source of infection? No. Patient's initial sepsis screen is negative. Risk Assessment: Do you want to hurt yourself or someone else? Patient reports no desire to harm self or others. Onset of symptoms was July 23, 2021. 10:59 Method Of Arrival: Ambulatory iw 10:59 Acuity: MARIA ISABEL 3 iw Historical: - Allergies: 10:59 No Known Allergies; iw - Home Meds: 10:59 Metformin Oral [Active]; iw - PMHx: 10:59 Diabetes mellitus; iw Screenin:26 Abuse screen: Denies threats or abuse. Denies injuries from another. Nutritional iw screening: No deficits noted. Tuberculosis screening: No symptoms or risk factors identified. Fall Risk IV access (20 points). Assessment: 11:26 General: Appears in no apparent distress. Behavior is calm, cooperative. Pain: iw Complains of pain in abdomen. Neuro: Level of Consciousness is awake, alert, obeys commands, Oriented to person, place, time, situation, Moves all extremities. Full function. GI: Bowel sounds present X 4 quads. Abd is soft X 4 quads Reports lower abdominal pain, upper abdominal pain. Derm: Skin is intact, is healthy with good turgor. Vital Signs: 11:00 BP 151 / 76; Pulse 67; Resp 16; Temp 97.5; Pulse Ox 97% on R/A; iw ED Course: 10:09 Patient arrived in ED. as 10:11 Niya Bender FNP is [facility] 7 10:11 Titus Love MD is Attending Physician. [facility] 11:00 Triage completed. iw 11:14 Inserted saline lock: 20 gauge in right forearm, using aseptic technique. Blood 7 collected. 11:16 Lisbet Andrea, RN is Primary Nurse. iw Administered Medications: 11:22 Drug: NS 0.9% 1000 ml Route: IV; Rate: 1 bolus; Site: right antecubital; iw 12:30 Follow up: IV Status: Completed infusion iw 11:22 Drug: Pepcid (famotidine) 20 mg Route: IVP; Site: right antecubital; iw 11:34 Follow up: Response: No adverse reaction iw 11:22 Drug: Zofran (Ondansetron) 4 mg Route: IVP; Site: right antecubital; iw 12:00 Follow up: Response: No adverse reaction iw 12:30 Drug: Insulin Regular Human 5 units {Co-Signature: iw (Lisbet Andrea RN).} Route: IVP; ld1 Site: right antecubital; 12:50 Follow up: Response: No adverse reaction Outcome: 12:35 Discharge ordered by . 7 13:05 Patient left the ED. iw Signatures: Jess Ladd Irene, RN RN iw Megan Scruggs RN RN 1 Roseann Sesay 7 Niya Bender FNP [place] [id number] Lisbet Andrea RN
[2021-08-06 13:11] VITALS: BP 151/76; TEMP 97.5; O2SAT 97
== END 2021-08-06 13:05 | disposition home or self-care (01) ==
LOC: ER 10:07
DX: K52.9 Noninfective gastroenteritis and colitis, unspecified (principal); E11.9 Type 2 diabetes mellitus without complications
CPT/HCPCS: 36415; 80053; 83690; 85025; 96361; 96374; 96375; 99283; J1815; J2405; J3490; J7030